=== PATIENT | male | born 1960 | race African-American/Black ===

== ENCOUNTER 2016-10-13 01:43 | Inpatient (IN) | payer OTHER ==
[~2016-10-13] VITALS: Ht 182.9 cm; Wt 208.3 kg
--- NOTE | ~2016-10-13 | HC ---
[facility] [place] [address] [place] [address] CONSULTATION Name: TIM BOOKER JR Room #: 214-P [facility] IN M.R.#: [id number] Admission: 10/13/16 Attend Phys: King Lee MD Discharge: Date of : 64 Report #: [id number] THIS REPORT FOR: //name// CC: Donaldo Lee DATE OF SERVICE: 10/13/2016 HISTORY OF PRESENT ILLNESS: This is a very pleasant -[place] male admitted for chest discomfort and elevated troponins. The patient had a history of hypertension, dyslipidemia, and described developing discomfort last night. The discomfort was the left-sided sensation that was worst when he waves his hand and left arm. The pain then radiated down further in the side of his chest, but continued to be worsened with movement. He described that portion of it as a dull ache at a 1-2/10 level. The discomfort is worse with palpitations. He said he had a similar episode of chest discomfort in the past and use to resolve only for a second, but this time it lasted longer. He said that he has been progressing with his physical activity protocol, but he has not been on it for a week or 10 days due to being out of town. He denies associated numbness, tingling, shortness of breath. Denies any palpitations ____ diaphoresis. It does not seem to be induced with exertion or activity or increase stress. Currently, it has resolved. ALLERGIES: No known drug allergies. PAST MEDICAL HISTORY: 1. Hypertension. 2. Obstructive sleep apnea. 3. Obesity. PAST SURGICAL HISTORY: Significant for: 1. Cardiac catheterization. 2. Repair of an intracranial aneurysm. ELECTROCARDIOGRAM: Normal sinus rhythm, nonspecific ST-T wave changes. REVIEW OF SYSTEMS: Except for the symptoms previously mentioned and those commensurate with comorbid state, the 10-point review of systems is negative. LABORATORY DATA: Noted and reviewed in the chart. RADIOLOGIC: Chest x-ray failed to demonstrate any acute processes. PHYSICAL EXAMINATION: GENERAL: A well-developed, well-nourished male, resting comfortably, in no acute distress. [facility] [address] [place] [address] CONSULTATION Name: TIM BOOKER Room #: 214-P [facility] IN .R.#: [id number] Admission: 10/13/16 Attend Phys: King Lee MD Discharge: Date of : 64 Report #: [id number] VITAL SIGNS: Noted and reviewed in the chart. HEENT: Normocephalic, atraumatic. Pupils are equal, round, reactive to light and accommodation. Extraocular muscles are intact. Sclerae and conjunctivae are anicteric. NECK: JVD is normal. Carotid upstrokes are bilaterally symmetrical. No bruits are heard. No thyromegaly. No lymphadenopathy. LUNGS: Clear to auscultation. No wheezes, rhonchi or crackles. No CVA tenderness. CARDIAC: Demonstrates a regular rhythm. Normal first and second heart sounds. No ventricular or atrial gallops, no rubs noted. No murmurs. No lifts or heaves, PMI normal. ABDOMEN: Soft, nontender, nondistended. Normal bowel sounds. EXTREMITIES: Without cyanosis, clubbing or edema. Distal pulses are intact. DTR symmetrical. NEUROLOGIC: Cranial nerves 2-12 are grossly normal and symmetrical. PSYCHIATRIC: Alert, oriented with normal affect. SKIN: Warm and dry. IMPRESSION AND PLAN: 1. Chest pain appears to be noncardiac in origin. May benefit from an outpatient perfusion scan if enzymes rise, if they do not then would likely treat accordingly for more noncardiac etiology. 2. Dyslipidemia. Discussed [place] [employer] step-1 diet. 3. Obstructive sleep apnea, does use continuous positive airway pressure. 4. Hypertension. The patient has been stable currently without any significant other issues. <ELECTRONICALLY SIGNED> By: Jordan Pruitt MD 10/14/16 0949 [id number] [id number] Jordan Pruitt MD /nt
--- NOTE | ~2016-10-13 | 2DMMODE ---
[facility] [address] [place] [address] 2 D/M-MODE ECHOCARDIOGRAM Name: TIM BOOKER Room #: 214-P [facility] IN .R.#: [id number] Admission: 10/13/16 Attend Phys: Lawanda Lemus Discharge: Date of : 64 Date of Service: 10/14/16 1228 Report #: [id number] THIS REPORT FOR: //name// APPROVED REPORT Study performed: 10/14/2016 10:33:48 EXAM: Comprehensive 2D, Doppler, and color-flow Echocardiogram Patient Location: Bedside Room #: 214 BSA: 3.03 HR: 63 bpm Other Information Study Quality: Adequate Indications Diabetes Cardiomyopathy Chest Pain Hypertension/HDD 2D Dimensions RVDd: 42.95 mm LVEF(%): 38.50 (>50%) IVSd: 12.58 (7-11mm) LVOT Diam: 25.89 (18-24mm) LVDd: 66.97 mm PWd: 10.85 (7-11mm) Ascending Ao: 37.87 (22-36mm) LVDs: 54.14 (25-40mm) Aortic Root: 37.08 mm IVC: 19.00 mm Moseley's LVEF: 38.50 % Volumes Left Atrial Volume (Systole) Single Plane 4CH: 97.48 mL Single Plane 2CH: 99.34 mL LA ESV Index: 35.00 mL/m2 Aortic Valve AoV Peak Nick.: 1.41 m/s AO Peak Gr.: 7.95 mmHg LVOT Max P.54 mmHg LVOT Max V: 0.94 m/s GANESH Vmax: 3.51 cm2 Mitral Valve [facility] [place] [address] 2 D/M-MODE ECHOCARDIOGRAM Name: TIM BOOKER Room #: 214-[facility] IN [facility]#: [id number] Admission: 10/13/16 Attend Phys: Lawanda Lemus Discharge: Date of : 64 Date of Service: 10/14/16 1228 Report #: [id number] E/A Ratio: 1.1 MV Decel. Time: 180.31 ms MV E Max Nick.: 0.86 m/s MV A Nick.: 0.78 m/s MV PHT: 52.29 ms IVRT: 119.95 ms Pulmonary Valve PV Peak Nick.: 0.88 m/s PV Peak Gr.: 3.09 mmHg Pulmonary Vein P Vein S: 0.48 m/s P Vein A: 0.20 m/s P Vein D: 0.27 m/s P Vein A Dur.: 129.2 msec P Vein S/D Ratio: 1.78 Tricuspid Valve TR Peak Nick.: 2.08 m/s RAP Estimate: 5.00 mmHg TR Peak Gr.: 17.32 mmHg PA Pressure: 22.00 mmHg Left Ventricle Left ventricle is dilated. There is global hypokinesis of the left ventricle. Mild concentric left ventricular hypertrophy. Left ventricular systolic function is mild to moderately decreased. LVEF is 30-35%. Grade II - pseudonormal filling dynamics. Right Ventricle Right ventricle is dilated. Right ventricular function was at the lower limits of normal. Atria Left atrium is dilated. Right atrium is dilated. Aortic Valve The aortic valve is normal in structure. Aortic valve is calcified. No aortic regurgitation is present. There is no aortic valvular stenosis. Mitral Valve The mitral valve is normal in structure. Mild mitral regurgitation. No evidence of mitral valve stenosis. Tricuspid Valve The tricuspid valve is normal in structure. There is trace tricuspid regurgitation. The right atrial pressure is estimated at 5 mmHg. There is no pulmonary hypertension. Estimated PAP was 22 [facility] [address] [address] 2 D/M-MODE ECHOCARDIOGRAM Name: TIM BOOKER Room #: 214-P [facility] IN .R.#: [id number] Admission: 10/13/16 Attend Phys: Lawanda Lemus Discharge: Date of : 64 Date of Service: 10/14/16 1228 Report #: [id number]. Pulmonic Valve The pulmonary valve is normal in structure. Trace pulmonic regurgitation. Great Vessels The aortic root is normal in size. IVC is normal in size and collapses >50% with inspiration. Pericardium There is no pericardial effusion. <Conclusion> Left ventricle is dilated. Mild concentric left ventricular hypertrophy. Left ventricular systolic function is mild to moderately decreased. LVEF is 30-35%. Grade II - pseudonormal filling dynamics. Right ventricle is dilated. Left atrium is dilated. Right atrium is dilated. The aortic valve is normal in structure. Aortic valve is calcified. The mitral valve is normal in structure. There is trace tricuspid regurgitation. The right atrial pressure is estimated at 5 mmHg. There is no pulmonary hypertension. Estimated PAP was 22 mmHg. There is no pericardial effusion. <ELECTRONICALLY SIGNED> By: Jose Valencia MD, FACC 10/14/16 1228 1228 1228 Jose Valencia MD, FACC /INF
[2016-10-13 02:35] VITALS: BP 158/88
[2016-10-13 08:00] VITALS: BP 137/91
[2016-10-13] MEDS ORDERED: PROBENECID500 MG PO (11:29)
[2016-10-13] MEDS ORDERED: LASIX 40 MG TAB40 M2 PO (11:30)
[2016-10-13] MEDS ORDERED: COLCHICINE0.6 MG PO (11:30)
[2016-10-13] MEDS ORDERED: BENICAR40 MG PO (11:31)
[2016-10-13] MEDS ORDERED: ALDACTONE25 MG PO (11:31)
[2016-10-13] MEDS ORDERED: ATORVASTATIN CA40 MG PO (11:31)
[2016-10-13] MEDS ORDERED: CATAPRES0.2 MG PO (11:32)
[2016-10-13] MEDS ORDERED: AMLODIPINE BESY10 MG PO (11:33)
[2016-10-13] MEDS ORDERED: METFORMIN HCL500 MG PO (11:34)
[2016-10-13] MEDS ORDERED: ALLOPURINOL 10100 M1 PO (11:34)
[2016-10-13 12:00] VITALS: BP 133/87
[2016-10-13 15:58] VITALS: BP 150/105
[2016-10-13 19:34] VITALS: BP 157/106
[2016-10-13 23:39] VITALS: BP 115/72
[2016-10-14] VITALS (7 sets, daily range): BP systolic 112–140; BP diastolic 66–89
[2016-10-14 03:09] LABS: HEMATOCRIT 39.9 % (42.0-52.0); HEMOGLOBIN 13.4 gm/dL (14.0-18.0); MCH 32.5 pg (26.0-34.0); MCHC 33.5 g/dL (28.0-37.0); MCV 96.9 fL (80.0-100.0); RBC 4.12 mil/uL (4.50-6.00); WBC 5.5 thou/uL (4.0-11.0)
[2016-10-14 03:45] LABS: ALBUMIN 3.6 g/dL (3.4-5.0); CALCIUM 9.3 mg/dL (8.5-10.1); CREATININE 1.3 mg/dL (0.7-1.3); PHOSPHORUS 4.2 mg/dL (2.5-4.9); POTASSIUM 4.3 mmol/L (3.5-5.1); TROPONIN-I 0.24 ng/mL (<0.04-0.07)
== END 2016-10-14 18:44 | disposition home or self-care (01) | DRG 313 ==
LOC: 2N 01:43 → ENTRNSPT 10-14 18:40 → 2N 10-14 18:44
PROVIDERS: Hospitalist; Nurse Practitioner Family
DX: R07.89 Other chest pain (principal); Z68.44 Body mass index [BMI] 60.0-69.9, adult; E78.5 Hyperlipidemia, unspecified; G47.33 Obstructive sleep apnea (adult) (pediatric); E66.9 Obesity, unspecified; M10.9 Gout, unspecified; I11.9 Hypertensive heart disease without heart failure; Z79.82 Long term (current) use of aspirin; Z79.899 Other long term (current) drug therapy
CPT/HCPCS: 10081